=== PATIENT | female | born 1990 | race Caucasian/White ===

== ENCOUNTER → 2024-04-20 11:30 | Outpatient (REF) | payer BC, SELFPAY ==
[2024-04-20 13:18] LABS: % Basophils 0.7 % (0-2); % Eosinophils 0.3 % (0-6); % Immature Granulocytes 0.3 % (0-0.5); % Lymphocytes 28.9 % (20.5-51.1); % Monocytes 8.3 % (1.7-9.3); % Neutrophils 61.5 % (42.2-75.2); Absolute Lymphocytes 1.7 10^3/uL (1.2-3.4); Absolute Monocytes 0.5 10^3/uL (0.1-0.6); Absolute Neutrophils 3.6 10^3/uL (1.4-6.5); Hematocrit 34.3 % (37.0-47.0); Hemoglobin 12.2 g/dL (12.0-16.0); Mean Corp Hgb Conc. 35.6 g/dL (33.0-37.0); Mean Corpuscular Hgb 31.1 pg (27.0-31.0); Mean Corpuscular Volume 87.5 fL (81.0-99.0); Nucleated Red Blood Cells % 0 %; Platelet Count 180 10^3/uL (130-400); Red Blood Cell Count 3.92 10^6/uL (4.20-5.40); Red Cell Dist. Width 12.1 % (11.5-14.5); White Blood Cell Count 5.9 10^3/uL (4.8-10.8)
[2024-04-20 13:23] LABS: Urine Albumin Negative (Neg - Trace); Urine Bilirubin 1+ (Negative); Urine Character Clear (Clear); Urine Color Yellow; Urine Glucose Negative (Negative); Urine Ketone Negative (Negative); Urine Leukocyte 1+ (Negative); Urine Nitrite Negative (Negative); Urine Occult Blood Negative (Negative); Urine Specific Gravity 1.025 (<1.030); Urine Urobilinogen Negative (Neg - 1+)
[2024-04-20 13:56] LABS: Glycohemoglobin (HgbA1c) 5.1 % (4.0-5.6)
[2024-04-20 14:05] LABS: Urine Red Blood Cell 0-2 /HPF (0-2)
[2024-04-20 14:06] LABS: Urine Bacteria Few (Negative)
[2024-04-20 14:30] LABS: Rubella Positive
[2024-04-20 14:34] LABS: Hepatitis B Surface Antigen Negative (Negative)
[2024-04-20 14:52] LABS: Hepatitis C Antibody Negative (Negative)
== END ==
LOC: REG 11:30
PROVIDERS: ATTENDING PHYSICIAN Nurse Practitioner Family
DX: Z32.01 Encounter for pregnancy test, result positive (principal)
CPT/HCPCS: 36415; 80055; 81003; 81015; 83036; 86803; 86850; 86900; 86901; 87086

== ENCOUNTER → 2024-05-18 09:58 | Outpatient (REF) | payer BC, SELFPAY ==
[2024-05-18 14:56] LABS: HIV Combo Negative (Negative)
[2024-05-18 15:28] LABS: Draw Blood Only Y
== END ==
LOC: REG 09:58
PROVIDERS: ATTENDING PHYSICIAN Obstetrics & Gynecology
DX: Z34.01 Encounter for supervision of normal first pregnancy, first trimester (principal)
CPT/HCPCS: 36415; 87389